=== PATIENT | female | born 1990 ===

== ENCOUNTER 2017-03-16 14:38 | Inpatient (IN) | payer MEDICAID ==
[2017-03-16 15:04] VITALS: BMI 35.4
--- NOTE | 2017-03-16 15:04 | OBADHP ---
Datetime: 03/16/2017 14:59 Admit Comment, IP Provider: at 40+weeks came with c/o ctxs started in am, irrg, 03/26,no vb, lof ,+fm. pt was supposed to be [place] [facility] [place] obhx primi pmh de med pnv all nkda psh de soch de ve /-3 a/p at 40weeks in [facility] labotr admit to l_d npo/ivf labs cont fady and efm pain managem cervidil anticipate Pelvic Type - PN: Adequate Extremities - PN: Normal Abdomen - PN: Normal Back - PN: Normal Breast - PN: Normal Lungs - PN: Normal Heart - PN: Normal Thyroid - PN: Normal Neurologic - PN: Normal HEENT - PN: Normal General - PN: Normal FHR - Baseline A Provider: 120 Contraction Comments Provider: irrg Comments, ACOG Physical Exam: gravid,non tender ext no edema,no calf ten IP Hx Assessment: The History has been Reviewed and is Current Vital Signs Provider: Reviewed; Within Normal Limits IP Chief Complaint: Uterine contractions NICHD Variability Prov Fetus A: Moderate 6-25bpm NICHD Accel Fetus A IP Provider: 15X15 FHR Category Provider Fetus A: Category I Dilatation, Provider: 1 Effacement, Provider: 50 Station, Provider: -3 Genitourinary Exam: Normal DTRs - PN: Normal IP Adm Impression: Postterm, intrauterine ; Intact Membranes IP Admit Plan: Admit to unit; Initiate labor induction protocol
[2017-03-16] MEDS ORDERED: Nalbuphine 20 mg/ml Inj (1 ml) IVP PRN (15:15)
[2017-03-16 16:13] LABS: BASO % 0.3 % (0.0-2.0); EOS % 0.5 % (0.0-4.0); HEMOGLOBIN 12.6 g/dL (11.0-16.0); LYMPH # 1.3 K/uL (1.0-4.3); LYMPH % 17.3 % (20.0-40.0); MEAN CELL VOLUME 90.4 fL (81.0-99.0); MEAN CORPUSCULAR HEMOGLOBIN 29.3 pg (27.0-31.0); MEAN CORPUSCULAR HGB CONC 32.4 g/dL (33.0-37.0); MEAN PLATELET VOLUME 10.3 fL (7.2-11.7); MONO # 0.8 K/uL (0.0-0.8); MONO % 10.4 % (0.0-10.0); NEUT # 5.5 K/uL (1.8-7.0); NEUT % 71.5 % (50.0-75.0); RBC 4.32 Mil/uL (3.80-5.20); RED CELL DISTRIBUTION WIDTH 15.1 % (11.5-14.5); WHITE BLOOD COUNT 7.6 K/uL (4.8-10.8)
[2017-03-16 16:20] LABS: ALBUMIN 3.5 g/dL (3.5-5.0)
[2017-03-16 16:23] LABS: GFR AFRICAN-AMERICAN > 60; GFR NON-AFRICAN AMERICAN > 60
[2017-03-16 16:24] LABS: ALB/GLOB RATIO 1.1 (1.0-2.1); ALT/SGPT 20 U/L (9-52); AST/SGOT 29 U/L (14-36); BLOOD UREA NITROGEN 10 mg/dL (7-17); CALCIUM 9.4 mg/dl (8.6-10.4); SQUAMOUS EPITHIAL 12 /hpf (0-5); URINE BACTERIA OCC (<OCC); URINE BILIRUBIN NEGATIVE (NEGATIVE); URINE BLOOD NEGATIVE (NEGATIVE); URINE CLARITY Hazy (Clear); URINE COLOR Yellow (YELLOW); URINE GLUCOSE (UA) NORMAL (Normal); URINE LEUKOCYTE ESTERASE 2+ Leu/uL (Negative); URINE NITRATE NEGATIVE (NEGATIVE); URINE PROTEIN NEGATIVE (NEGATIVE); URINE UROBILINOGEN NORMAL mg/dL (0.2-1.0)
--- NOTE | 2017-03-16 17:32 | OBPN ---
Datetime: 03/16/2017 17:29 IP Procedures: Sterile Vag Exam IP Progress Plan: Cervical Ripening Contraction Comments Provider: irrg FHR - Baseline A Provider: 150 IP Progress Note Comment: pt was examined at bed side cervidil placed r/a/b disc Vital Signs Provider: Reviewed; Within Normal Limits NICHD Accel Fetus A IP Provider: 15X15 FHR Category Provider Fetus A: Category I NICHD Variability Prov Fetus A: Moderate 6-25bpm Dilatation, Provider: 1 Effacement, Provider: 30 Station, Provider: -3
[2017-03-17] MEDS ORDERED: Bupivacaine HCl 0.25% PF (10 ml) Inj ONE (04:47)
[2017-03-17] MEDS ORDERED: Bupivacaine 0.125%/FentaNYL 0 ML EPI ONE (04:47)
[2017-03-17] MEDS ORDERED: Oxytocin 30 UNIT 30 UNITS/500 ML BAG IV ONE (07:37)
[2017-03-17] MEDS ORDERED: Oxytocin 30 UNIT 30 UNITS/500 ML BAG IV SCH (07:45)
[2017-03-17] MEDS: Lactated Ringer's 1,000 ML IV SCH (11:06)
--- NOTE | 2017-03-17 12:46 | OBPN ---
Datetime: 03/17/2017 12:42 IP Progress Impression: Normal progression of labor; Reassuring heart rate; Reactive non-stres s test IP Procedures: Sterile Vag Exam IP Progress Plan: Continue present management; Augmentation Membranes, Provider: Ruptured FHR - Baseline A Provider: 145 Gestation - Est Wks by US: 40.6 Presentation-Admit: Vertex IP Progress Note Comment: IUP at 40+ weeks in active Labor. Plan: Continue labor monitoing. Vital Signs Provider: Reviewed NICHD Accel Fetus A IP Provider: 15X15 FHR Category Provider Fetus A: Category I NICHD Variability Prov Fetus A: Moderate 6-25bpm NICHD Decel Fetus A IP Provider: None
--- NOTE | 2017-03-17 14:37 | OBPN ---
Datetime: 03/17/2017 14:33 IP Progress Impression: Normal progression of labor; Reassuring heart rate IP Procedures: Sterile Vag Exam IP Progress Plan: Continue present management; Augmentation Membranes, Provider: Ruptured Contraction Comments Provider: Q 2-3 FHR - Baseline A Provider: 145 Gestation - Est Wks by US: 40.6 Presentation-Admit: Vertex IP Progress Note Comment: IUP at 40 wks In Labor. Plan: Continue labor monitoring. Vital Signs Provider: Reviewed NICHD Accel Fetus A IP Provider: 15X15 FHR Category Provider Fetus A: Category I NICHD Variability Prov Fetus A: Moderate 6-25bpm Dilatation, Provider: 8 Effacement, Provider: 90 Station, Provider: 1 NICHD Decel Fetus A IP Provider: None
[2017-03-17] MEDS ORDERED: Lidocaine 2% Inj (20ml) ONE (19:48)
[2017-03-17] MEDS ORDERED: cefOXitin IV 2 gm in Dextrose 2 GM/50 ML BAG IVPB ONE ×2 (20:18→20:38)
[2017-03-17] MEDS ORDERED: Sodium Citrate/Citric Acid 15 ml Sol ONE (20:20)
--- NOTE | 2017-03-17 20:23 | OBPN ---
Datetime: 03/17/2017 20:16 IP Progress Impression: Arrest of dilatation/descent; Reassuring heart rate; Rupture of membra margy IP Informed Consent Obtain: Section Delivery IP Procedures: Sterile Vag Exam IP Progress Plan: Deliver- Section Membranes, Provider: Intact Contraction Comments Provider: Q 2-3 FHR - Baseline A Provider: 140 Gestation - Est Wks by US: 40.6 Presentation-Admit: Vertex IP Progress Note Comment: IUP at 40.6wks in Labor Cx: 10cm since 5:20pm. No progress despite pushing efforts from pt for about 3 hours. Assessment: IUP at 40+wks in Labor Arrest of descent Plan: Prepare for Section. Consents obtained. NICHD Accel Fetus A IP Provider: 15X15 FHR Category Provider Fetus A: Category I NICHD Variability Prov Fetus A: Moderate 6-25bpm Dilatation, Provider: 10 Effacement, Provider: 100 Station, Provider: 0 NICHD Decel Fetus A IP Provider: None
[2017-03-17] MEDS ORDERED: Bupivacaine-Epi 0.5%-1:200,000 PF Inj ONE (20:28)
[2017-03-17] MEDS ORDERED: Morphine 1 mg/ml preservative-free Inj(Duramorph) ONE (20:36)
[2017-03-17] MEDS ORDERED: Lidocaine 2% MPF (5 ml) Inj ONE (20:37)
[2017-03-17] MEDS ORDERED: Sodium Citrate/Citric Acid 15 ml Sol PO ONE (20:38)
[2017-03-17] MEDS ORDERED: Oxytocin 20 units in LR 2,000 ML IV ONE (21:10)
--- NOTE | 2017-03-17 22:11 | OBDS ---
DELIVERY PERSONNEL Delivery Doctor: Brenden Grijalva MD Medical Dir: Isabel Bryson RN Anesthesiologist: Miguel Angel Lang MD MATERNAL INFORMATION Delivery Anesthesia: Epidural Medications in Delivery: PITOCIN Estimated Blood Loss (ml): 600 Placenta Cultured: No Maternal Complications: None RN Comments: LIVE BABY GIRL 9/9 Provider Comments: Uncomplicated Primary delivery of a viable female with scor es of 9 and 9 delivered in the occipitotransverse position- transverse arrest. LABOR SUMMARY EDC: 03/11/2017 00:00 No. Babies in Womb: 1 Attempted: No Labor Anesthesia: Epidural LABOR INFORMATION Onset of Labor: 03/16/2017 10:00 Complete Dilatation: 03/17/2017 19:45 Cervical Ripening Agents: Cervidil Oxytocin: Augmentation Group B Beta Strep: Negative Steroids Given: None Reason Steroids Not Administered: Not Applicable MEMBRANES Membranes Rupture Method: Spontaneous Rupture of Membranes: 03/17/2017 02:00 Length of Rupture (hrs): 19.35 Amniotic Fluid Color: Light Meconium Amniotic Fluid Amount: Scant Amniotic Fluid Odor: Normal STAGES OF LABOR Stage 1 hrs: 33 Stage 1 min: 45 Stage 2 hrs: 1 Stage 2 min: 36 Stage 3 hrs: 0 Stage 3 min: 1 Total Time in Labor hrs: 35 Total Time in Labor min: 22 VAGINAL DELIVERY Episiotomy: None Laceration Extension: N/A Laceration Type: None CSECTION DELIVERY Primary Indication: Arrest of Descent CSection Urgency: Elective CSection Incidence: Primary Labor: Labor Elective: Elective CSection Incision: Lower Uterine Transverse Uterine Closure: Double-layer closure BABY A INFORMATION Infant Delivery Date/Time: 03/17/2017 21:21 Method of Delivery: Born in Route : No : N/A Forceps: N/A Vacuum Extraction: N/A Shoulder Dystocia : No SHOULDER DYSTOCIA BABY A Infant Delivery Date/Time: 03/17/2017 21:21 PRESENTATION/POSITION BABY A Presentation: Cephalic Cephalic Presentation: Vertex Vertex Position: Right Occipital Transverse Breech Presentation: N/A PLACENTA INFORMATION BABY A Placenta Delivery Time : 03/17/2017 21:22 Placenta Method of Delivery: Manual Removal Placenta Status: Delivered SCORES BABY A Heart Rate 1 min: >100 bpm Resp Effort 1 min: Good Cry Reflex Irritability 1 min: Cough or Sneeze or Pulls Away Muscle Tone 1 min: Active Motion Color 1 min: Body [place], Extremities Blue Resuscitation Effort 1 min: Tactile Stimulation SCORE 1 MIN: 9 Heart Rate 5 min: >100 bpm Resp Effort 5 min: Good Cry Reflex Irritability 5 min: Cough or Sneeze or Pulls Away Muscle Tone 5 min: Active Motion Color 5 min: Body [place], Extremities Blue SCORE 5 MIN: 9 INFANT INFORMATION BABY A Gestational Age at Delivery: 40.6 Gestational Status: Term Infant Outcome : Liveborn Condition : Stable Sex: Female IDENTIFICATION/MEDS BABY A ID Band Number: [id number] ID Band Location: Left Leg; Left Arm Sensor Applied: Yes Sensor Number: [id number] Sensor Location : Cord Clamp Vitamin K Given : Aquamephyton 1 mg IM; Left Thigh Erythromycin Given: Given Both Eyes WEIGHT/LENGTH BABY A Infant Birthweight (gms): 3990 Weight (lb): 8 Infant Weight (oz): 13 Length Inches: 20.00 Infant Length cms: 50.8 CORD INFORMATION BABY A No. Cord Vessels: 3 Nuchal Cord : N/A Cord Blood Taken: No Infant Suction: Mouth; Nose ASSESSMENT BABY A Complications: None Physical Findings at Delivery: Within Normal Limits Infant Respirations: Appears Normal Systems Software Engineer/ALS Called : No Care By: /JACKIE ESQUIVEL Transferred To: [facility]
--- NOTE | 2017-03-17 22:25 | PCM.SURG1 ---
Surgeon's Initial Post Op Note - Surgeon's Notes Surgeon: Dr Grijalva Road Design Engineer: Dr Nicole Type of Anesthesia: Spinal Anesthesia Administered By: Dr Lang Pre-Operative Diagnosis: IUP at 40+ Weeks in Labor,. Arrest of descent Operative Findings: Live female infant with BW of 3990gm and score of 9 and 9 delivered in cephalic presentation with occipito-transverse position, Clear amniotic fluid. Normal uterus , fallopian tubes and ovaries. IV Fluid intake- 1300mls. EBL- 600mls. Urine output- 400mls Post-Operative Diagnosis: Same as preop diagnosis Operation Performed: Primary Low Transverse Section. Specimen/Specimens Removed: Umbilical Cord blood Estimated Blood Loss: EBL {In ML}: 600 Post-Op Condition: Good Date of Surgery/Procedure: 03/17/17 Time of Surgery/Procedure: 22:26
--- NOTE | 2017-03-17 22:29 | PCM.OP ---
Operative Report - Operative Report Date of Surgery/Procedure: 03/17/17 Time of Surgery/Procedure: 22:27 Surgeon: Dr Grijalva Pigeon Fancier: Dr Nicole. Assistance to this procedure was needed for exposure of tissues. Anesthesia/Sedation: Spinal anesthesia Pre-Operative Diagnosis: IUP at 40wks in Labor with Arrest of Descent in the second stage of labor Post-Operative Diagnosis: Same as preop Diagnosis Indication for Surgery: IUP at 40wks in Labor with Arrest of Descent in the second stage of labor Operative Findings: Live female with BW of 3990gm and score of 9 and 9 delivered in cephalic presentation with occipito-transverse position, Clear amniotic fluid. Normal uterus , fallopian tubes and ovaries. IV Fluid intake- 1300mls. EBL- 600mls. Urine output- 400mls. This procedure was assisted by Dr Nicole. Assistance to the procedure was needed for Exposure of tissues and help in the delivery of the baby. The first assistant remained with the procedure through its entire length. Procedure/Operation Description: After obtaining informed consent, the patient was sent to the OR with IV running and folleys catheter in place. Pt was placed on the OR table and the epidural anesthesia, which was already in place, was topped up to provide anesthesia. The Pt was preped and draped in the usual sterile fashion. A pfaniestiel incision was made using a scarpel about 2.5cm from the pubic symphysis. This was carried through the subcutaneous tissues till the rectus fascia was identified. A transverse incision was made in the fascia using a bovoe device and was lifted off the underlying rectus muscles both superiorly and inferiorly using blunt and sharp dissection. The rectus muscles were seperated in the midline and the exposed peritoneum was tented between 2 tamara clamps and entered sharply with metzenbaum scissors and with good visualization of the bladder. The vesicouterine fold of peritoneum was identified and incised in a tranverse fashion and retracted inferiorly to expose the Lower uterine segment. A low transverse incision was made using a scarpel and this was sent through the myometrial layers till the amniotic membranes were identified. This was ruptured with a pickup forceps and the baby which was in cephalic presentation and appeared to be arrested on the transverse position was delivered. The mouth and nostrils were bulb suctioned and the umbilical cord clamped and cut. The baby was given to the nurse. Umbilical cord blood was obtained into the provided test tubes and the placenta manually removed from the uterine cavity. The uterus was brought out of the abdominal cavity and the cavity cleaned of all debris using dry lap pads. The Uterine incicion was then closed in 2 layers using #0 Vicryl, the first layer in a run and lock fashion and the second layer in a running fashion umbricating the first layer. Hemostasis was noted. Irrigatition of the pelvis with warmed normal saline was performed. After assuring hemostasis, attention was turned to the anterior abdominal wall which was closed in layers with #2-0 vicryl for the peritoneum and the rectus muscles. The rectus fascia was reapproximated using vicryl #0. The subcutaneous tissue was brought together with #2-0 Plain cutgut. The skin was closed in a subcuticular fashion using # 4- 0 vicryl.All counts of intruments were correct X 3. Pt was sent to the recovery room awake and in stable condition. Estimated Blood Loss: 600 Blood Replaced: None Sponge/Instrument Count: Correct X3 Drains: None Complications: None Specimen: None Discharge & Condition: Stable
[2017-03-18] MEDS: cefOXitin IV 2 gm in Dextrose 2 GM/50 ML BAG IVPB SCH ×3 (05:31→22:04)
--- NOTE | 2017-03-18 07:36 | OBPPN ---
Datetime: 03/18/2017 07:32 PP Pain Prov: Within normal limits PP Nausea Prov: Denies PP Flatus Prov: Yes PP Breasts Prov: Normal PP Heart Prov: Normal PP Lungs Prov: Normal PP Abdomen/Uterus Prov: Normal PP Lochia Prov: Normal PP Vulva/Perineum Prov: Normal PP CVA Tenderness Prov: Normal PP Extremities Prov: Normal PP C/S Incision Prov: Normal PP Progress Prov: Normal PP Comments Phys Exam Prov: Abd: Soft, NT, BS- present UT- Firm Incision: Clean and dry PP Impression Prov: Normal progression PP Plan Prov: Continue present management PP Progress Note Prov: s/p Delivery, POD#1 Clinically Stable. Plan: Continue care. Vital Signs Provider PP: Reviewed
[2017-03-18 07:51] LABS: HEMOGLOBIN 10.4 g/dL (11.0-16.0); MEAN CELL VOLUME 91.4 fL (81.0-99.0); MEAN CORPUSCULAR HEMOGLOBIN 29.1 pg (27.0-31.0); MEAN CORPUSCULAR HGB CONC 31.8 g/dL (33.0-37.0); MEAN PLATELET VOLUME 10.5 fL (7.2-11.7); RBC 3.56 Mil/uL (3.80-5.20); RED CELL DISTRIBUTION WIDTH 15.5 % (11.5-14.5); WHITE BLOOD COUNT 11.3 K/uL (4.8-10.8)
[2017-03-18] MEDS: Oxycodone/Acetaminophen 5/325 mg Tab PO PRN ×3 (09:20→22:03)
[2017-03-19] MEDS: cefOXitin IV 2 gm in Dextrose 2 GM/50 ML BAG IVPB SCH (06:59)
[2017-03-19] MEDS: Oxycodone/Acetaminophen 5/325 mg Tab PO PRN ×3 (07:35→20:45)
--- NOTE | 2017-03-19 15:05 | OBPPN ---
Datetime: 03/19/2017 14:54 PP Pain Prov: Within normal limits PP Nausea Prov: Denies PP Flatus Prov: No PP BM Prov: No PP Breasts Prov: Normal PP Heart Prov: Normal PP Lungs Prov: Normal PP Abdomen/Uterus Prov: Normal PP Lochia Prov: Normal PP Vulva/Perineum Prov: Not Done PP CVA Tenderness Prov: Normal PP Extremities Prov: Normal PP C/S Incision Prov: Normal PP Progress Prov: Normal PP Comments Phys Exam Prov: Abdomen: Softly distended. (+)hypoactive BS. Fundus -firm, mobile, mild and appropriately tender, at umbilicus. Incision with subcuticular closure - clean, dry, intact. Mil d lochia rubra Extremities: no calf tenderness bilaterally; 2+ lower extremity edema bilaterally All other systems reviewed and are negative PP Impression Prov: Normal progression PP Plan Prov: Continue present management PP Progress Note Prov: Patient received sitting up in chair. Desires to breastfeed; doing so with so em bottle. (+) incisional pain, /10; relieved with pain medications. Ambulating in room; has walked o nce in hallway. Voiding without dificulty. Denies nausea, vomiting, flatus or BM. P.E.: as above. Small, but obese, in NAD. Awke, alert, oriented to time, person and place. Pleasan t and cooperative - POD#1 H/H 10.32. Rh(+) Assessment: POD#2, 26 yo P1, S/P prim LTCS for arrest of descent/failed DANIEL. Afebrile, vital sign s stable. Anemia - asymptomatic and hemodynamically stable. Returning and GI functions; patient en couraged to ambulate in hallway more. Clinically stable. Plan: 1) As above. 2) Continue present management 3) Anticipate discharge home 03/20/17 Vital Signs Provider PP: Reviewed; Within Normal Limits
[2017-03-19] MEDS: Lactated Ringer's 1,000 ML IV SCH (17:14)
[2017-03-20] MEDS: Oxycodone/Acetaminophen 5/325 mg Tab PO PRN (07:48)
--- NOTE | 2017-03-20 08:05 | OBPPN ---
Datetime: 03/20/2017 08:02 PP Pain Prov: Within normal limits PP Nausea Prov: Denies PP Flatus Prov: Yes PP Breasts Prov: Normal PP Heart Prov: Normal PP Lungs Prov: Normal PP Abdomen/Uterus Prov: Normal PP Lochia Prov: Normal PP Vulva/Perineum Prov: Normal PP CVA Tenderness Prov: Normal PP Extremities Prov: Normal PP C/S Incision Prov: Normal PP Progress Prov: Normal PP Comments Phys Exam Prov: Abd: Soft, NT, BS- presnt UT- Firm Incision: Clean and dry PP Impression Prov: Normal progression PP Progress Note Prov: S/P Primary Section, POD#3 Clinically stable. Plan: D/c home. Vital Signs Provider PP: Reviewed
--- NOTE | 2017-03-20 08:07 | OBDCSUM ---
Datetime: 03/20/2017 08:05 Discharged to, Provider: Home Follow [facility] at, [facility] Disch Instr Activity: Normal activity Disch Instr Diet: Regular Discharge Instructions, Provider: Routine instructions given Discharge Diagnosis, Provider: Term Delivered Discharge Time: 03/20/2017 08:05 Follow up in weeks, Provider: 2 weeks Disch Referrals: None Contraception discussed, Prov: Yes Discharge Comment, Provider: S/P Primary Section, Clinically Stable Discharge Diagnosis Prov Other: S/P Primary Section, Clinically Stable
[2017-03-20 09:16] VITALS: BP 107/68; PULSE 100; RESP 18; TEMP 97.2; O2SAT 100
== END 2017-03-20 12:50 | disposition home or self-care (01) | DRG 371 ==
LOC: C.EROB 14:38 → C.4D 15:04 → C.4M 03-18 00:30
PROVIDERS: ADMIT Obstetrics & Gynecology; ATTEND Obstetrics & Gynecology
PROC: 10D00Z1 Extraction of Products of Conception, Low, Open Approach (ICD-10-PCS; principal; 2017-03-17)
PROC: 3E0P7GC Introduction of Other Therapeutic Substance into Female Reproductive, Via Natural or Artificial Opening (ICD-10-PCS; 2017-03-17)
DX: O64.0XX0 Obstructed labor due to incomplete rotation of fetal head, not applicable or unspecified (principal); O48.0 Post-term pregnancy; O62.1 Secondary uterine inertia; Z37.0 Single live birth; Z3A.40 40 weeks gestation of pregnancy